=== PATIENT | female | born 1995 | race Hispanic/Latino ===

== ENCOUNTER 2019-06-22 11:00 | Outpatient (CLI) | payer MEDICAID ==
--- NOTE | 2019-06-22 12:59 | ULT ---
OB ULTRASOUND: HISTORY: anatomy. FINDINGS: A single live intrauterine gestation is seen with measurements corresponding an estimated gestational age of 20 weeks 5 days and an SUZIE of 11/04/2019. The estimated weight measures 386 g or 14 oz (40th percentile by Hadlock criteria). measurements are as follows: BPD: 4.54 cm (19 weeks 6 days) HC: 17.84 cm (20 weeks 3 days) AC: 15.70 cm (20 weeks 6 days) FL: 3.56 cm (21 weeks 2 days) The heart rate measures 142 beats per minute. Placenta is posteriorly located without evidence of placenta previa. GILBERT measures 12.48 cm. Cervical length measures 5.5 cm. A three-vessel cord, cord insertion, kidneys, bladder, stomach, four-chambered heart, lateral v entricles, cerebellum, visualized portions of the spine, lips/nose and upper and lower extremities ar e visualized. No definite anomalies are seen. IMPRESSION: Single live intrauterine of 20 weeks' 5 days' estimated gestational age and an estimated da te of delivery 11/04/2019. POS: YANN
== END 2019-06-22 11:01 | disposition home or self-care (01) ==
LOC: BICULT 11:00
PROVIDERS: ATTEND Nurse Practitioner
DX: O09.92 Supervision of high risk pregnancy, unspecified, second trimester (principal); Z3A.20 20 weeks gestation of pregnancy
CPT/HCPCS: 76805

== ENCOUNTER 2019-10-25 04:50 | Outpatient (CLI) | payer OTHER ==
[2019-10-25 18:04] LABS: SARS-CoV-2 MS2 Positive; SARS-CoV-2 N Gene Negative; SARS-CoV-2 S Gene Negative; SARS-CoV-2 orf1ab Negative
== END 2019-10-25 04:51 | disposition home or self-care (01) ==
LOC: ERS 04:50
PROVIDERS: ATTEND Family Medicine
DX: Z01.812 Encounter for preprocedural laboratory examination (principal); Z11.59 Encounter for screening for other viral diseases
CPT/HCPCS: 87635; U0003

== ENCOUNTER 2019-10-27 10:41 | Inpatient (IN) | payer OTHER ==
[2019-10-27] MEDS ORDERED: Ondansetron PF 4 MG/2 ML Vial IVP PRN ×4 (11:28→16:07)
[2019-10-27] MEDS ORDERED: Promethazine HCl 25 MG/ML VIAL IM PRN ×4 (11:28→16:07)
[2019-10-27] MEDS ORDERED: CEFAZOLIN 3 GM in Premix Bag 1 BAG IVPB SCH (11:28)
[2019-10-27] MEDS ORDERED: hydrALAZINE 20 MG/ML VIAL SLOW IVP PRN ×2 (11:28→16:07)
[2019-10-27] MEDS ORDERED: Bicitra 30 ML UDCUP PO SCH (11:28)
[2019-10-27] MEDS ORDERED: Azithromycin 500 MG in Sodium Chloride 0.9% 250 ML 250 ML IVPB SCH (11:28)
[2019-10-27] MEDS ORDERED: Lactated Ringer's 1,000 ML IV SCH (11:28)
[2019-10-27 11:36] VITALS: BMI 49.4
[2019-10-27] MEDS ORDERED: MORPHINE 5 MG/10 ML PF VIAL ONE (11:52)
[2019-10-27] MEDS ORDERED: Midazolam HCl 2 mg/2 ml Vial ONE ×2 (11:53→12:55)
[2019-10-27] MEDS ORDERED: Oxytocin 10 UNITS/ML VIAL ONE (11:54)
[2019-10-27] MEDS ORDERED: PHENYLEPHRINE-NS 100 MCG/ML 10 ML SYRINGE ONE (11:54)
[2019-10-27] MEDS ORDERED: EPHEDRINE 25 MG/5 ML SYRINGE ONE (11:54)
[2019-10-27] MEDS ORDERED: Dexamethasone 4 mg/ml Vial ONE (11:54)
[2019-10-27] MEDS ORDERED: Ketorolac Tromethamine 30 MG/ML VIAL ONE (11:54)
[2019-10-27] MEDS ORDERED: Ondansetron PF 4 MG/2 ML Vial ONE (11:54)
[2019-10-27 12:07] LABS: Hemoglobin 11.9 g/dL (12.0-16.0); Mean Corpuscular HGB CONC 31.9 g/dL (32.0-36.0); Mean Corpuscular Volume 87.8 fL (78.0-98.0); Mean Platelet Volume 7.1 fL (7.4-10.4); Platelet Count 307 thou/uL (130-400); RBC Distribution Width 13.6 % (11.5-14.5); Red Blood Cell (RBC) Count 4.25 mill/uL (4.20-5.40); White Blood Cell (WBC) Count 8.1 thou/uL (4.8-10.8)
[2019-10-27] MEDS ORDERED: Ketorolac Tromethamine 30 MG/ML VIAL IVP PRN ×2 (12:07→15:15)
[2019-10-27] MEDS ORDERED: diphenhydrAMINE 50 MG/ML VIAL IVP PRN ×2 (12:07→15:15)
[2019-10-27] MEDS ORDERED: Naloxone HCl 0.4 mg/ml Vial IVP PRN ×4 (12:07→15:15)
[2019-10-27] MEDS ORDERED: Promethazine HCl 25 MG SUPP PR PRN ×2 (12:07→15:15)
[2019-10-27] MEDS ORDERED: Naloxone HCl 0.4 mg/ml Vial IV PRN ×2 (12:07→15:15)
[2019-10-27] MEDS ORDERED: CEFAZOLIN 1 GM VIAL ONE (12:11)
[2019-10-27] MEDS ORDERED: CEFAZOLIN 3 GM in Sodium Chloride 0.9% 100 ML IVPB SCH (12:15)
[2019-10-27] MEDS ORDERED: Communication Order-Pharmacy FS SCH ×2 (12:15→15:15)
[2019-10-27 12:44] LABS: Syphilis Antibody Nonreactive (Nonreactive); Syphilis Antibody Index 0.05 S/CO (<1.00 Non-Reactive)
[2019-10-27 12:45] LABS: HBSAg Index 0.15 S/CO (0-0.99); Hep B Surf Ag Non-Reactive S/CO (NonReactive)
[2019-10-27] MEDS ORDERED: L&D-Morphine 4 MG/ML VIAL SLOW IVP PRN (15:15)
[2019-10-27] MEDS ORDERED: Ketorolac Tromethamine 30 MG/ML VIAL IVP SCH (15:15)
[2019-10-27] MEDS ORDERED: HYDROmorphone 2 MG/ML VIAL SLOW IVP PRN (15:15)
[2019-10-27] MEDS ORDERED: Meperidine HCl/PF 25 MG/ML VIAL SLOW IVP PRN (15:15)
[2019-10-27] MEDS ORDERED: Ondansetron HCl/PF 4 MG/2 ML Vial IVP PRN (15:15)
[2019-10-27] MEDS ORDERED: Meperidine HCl/PF 25 MG/ML VIAL ONE (15:26)
[2019-10-27] MEDS ORDERED: Morphine 4 MG/ML VIAL ONE (15:50)
[2019-10-27] MEDS ORDERED: Lanolin Ointment 7 GM TUBE TOP PRN (16:07)
[2019-10-27] MEDS ORDERED: Bisacodyl 10 MG SUPP PR PRN (16:07)
[2019-10-27] MEDS ORDERED: diphenhydrAMINE 25 MG CAP PO PRN (16:07)
[2019-10-27] MEDS ORDERED: NS / Oxytocin 40 units/1000ml 1,000 ML IV SCH (16:07)
[2019-10-27] MEDS: Ketorolac Tromethamine 30 MG/ML VIAL IVP SCH (20:45)
[2019-10-28] MEDS ORDERED: Meperidine HCl/PF 25 MG/ML VIAL IM PRN (03:15)
[2019-10-28] MEDS: Ketorolac Tromethamine 30 MG/ML VIAL IVP SCH ×2 (05:28→08:20)
[2019-10-28] MEDS: Ibuprofen 800 MG TAB PO SCH ×3 (05:28→21:15)
[2019-10-28] MEDS: Ferrous Sulfate 325 MG TAB PO SCH ×3 (05:31→23:12)
[2019-10-28] MEDS: Docusate Calcium (SURFAK) 240 MG CAP PO SCH ×3 (05:31→21:15)
[2019-10-28 06:00] LABS: Hemoglobin 11.4 g/dL (12.0-16.0); Mean Corpuscular HGB CONC 32.8 g/dL (32.0-36.0); Mean Corpuscular Hemoglobin 29.1 pg (27.0-31.0); Mean Corpuscular Volume 88.7 fL (78.0-98.0); Mean Platelet Volume 6.4 fL (7.4-10.4); Platelet Count 283 thou/uL (130-400); RBC Distribution Width 13.5 % (11.5-14.5); Red Blood Cell (RBC) Count 3.93 mill/uL (4.20-5.40); White Blood Cell (WBC) Count 8.7 thou/uL (4.8-10.8)
[2019-10-28] MEDS: HYDROcodone/Acetaminophen 5/325 mg Tablet PO PRN ×4 (06:12→19:23)
--- NOTE | 2019-10-28 07:42 | PDOC.OPDEL ---
OB Operative/Delivery Note Delivery Dr/Surgeon: Bunny Assist: [place] Pre-Delivery Diagnosis: scheduled section Procedure/Post Delivery Dx: repeat low transverse CS Weeks gestation: 39 Anesthesia: spinal - Findings A Sex: male - 1 min: 8 - 5 min: 6 - Additional Findings/Plan Placenta delivered: manual removal findings: other (There were lots of small pinpoint adhesions on both front and back of uterus. We used multiple things of kelton to help with hemostasis.) Estimated blood loss: 828 Compilations/Other Findings: Procedure in Detail: After risks, benefits, and alternatives were explained to the patient, she gave informed consent. Pre-operative antibiotics included Cefazolin 2 gram IV. The patient was taken to the operating room and spinal anesthesia was initiated. She was placed in the supine position with a left tilt and prepped and draped in usual sterile fashion. A Pfannenstiel incision was made with a scalpel and carried down to the level of the fascia which was sharply nicked. The fascial cut was extended bilaterally with curved Perez sissors. The inferior and superior edges of the cut fascial edges were elevated with Elizabeth clamps and the underlying rectus muscles were sharply and bluntly dissected free. The recti were divided digitally and retracted manually. The peritoneum was entered bluntly and retracted manually. Bladder blade was placed. Bladder flap was created with Metzenbaum scissors. A low transverse score was made with the scalpel and the uterus was entered in the midline with the scalpel. Clear fluid was seen. The hysterotomy was extended manually. The infant was noted to be vertex and was easily delivered by fundal pressure. Mouth and nares were bulb suctioned. Cord clamped and cut and grossly normal male was handed to waiting nurse. Cord blood was obtained. Placenta was manually extracted, found to be intact with 3 vessel cord and discarded. The uterus was externalized and the endometrium was curetted with a dry lap. The bladder blade was replaced and the uterus was closed with a running locking 1-0 monocryl suture followed by 1 figure of eight stitch. Following this hemostasis was noted along the incision line. There were multiple adhesions noted on the front and back of uterus. One omental adhesion was removed with bovie cautery. The abdomen was then irrigated with saline. Some smaller serosal adhesions were noted to be oozing. Hemostasis was obtained using bovie cautery and kelton powder. Two vials of kelton were used. The incision was then dressed with seprafilm. The uterus was internalized and the hysterotomy was again noted to be hemostatic. The peritoneum was then closed with 3-0 vicryl. The muscle belly was noted to having some oozing. It was made hemostatic with and 0-vicryl figure of eight suture. The fascia was closed with a running non-locking 0-PDS suture. The subcutaneous tissue was irrigated and there were no bleeders. The subq layer was brought toghether with 3 interupted 3-vicyrl suture. The skin was approximated with becky and a pressure dressing was placed. All counts were correct. The patient tolerated the procedure well and was taken to the recovery room in stable condition. Complications: None Specimens: Cord blood sent to lab for blood type Findings: Grossly normal male/female infant with apgars of 8 and 6. Grossly normal placenta with 3 vessel cord discarded. Drains: Mosqueda to gravity draining clear urine Post delivery plan: routine recovery
[2019-10-28] MEDS ORDERED: Adacel (T-DAP) 0.5 ML SYRINGE IM ONE (09:00)
[2019-10-28] MEDS: Prenatal Vitamin 1 TAB PO SCH (10:09)
[2019-10-28] MEDS: Simethicone Chewable 80 MG TAB PO PRN (14:10)
[2019-10-28] MEDS ORDERED: Ibuprofen 800 MG TAB PO SCH (22:00)
[2019-10-29] MEDS: HYDROcodone/Acetaminophen 5/325 mg Tablet PO PRN ×5 (01:10→21:37)
[2019-10-29] MEDS: Ibuprofen 800 MG TAB PO SCH ×3 (06:03→21:37)
[2019-10-29] MEDS: Prenatal Vitamin 1 TAB PO SCH (09:15)
[2019-10-29] MEDS: Docusate Calcium (SURFAK) 240 MG CAP PO SCH ×2 (09:15→21:37)
[2019-10-29] MEDS: Ferrous Sulfate 325 MG TAB PO SCH ×2 (09:16→21:37)
[2019-10-29] MEDS: Simethicone Chewable 80 MG TAB PO PRN (13:27)
[2019-10-30] MEDS: HYDROcodone/Acetaminophen 5/325 mg Tablet PO PRN ×5 (01:16→20:14)
[2019-10-30] MEDS: Ibuprofen 800 MG TAB PO SCH ×3 (05:04→21:34)
[2019-10-30] MEDS: Docusate Calcium (SURFAK) 240 MG CAP PO SCH ×2 (09:26→21:34)
[2019-10-30] MEDS: Prenatal Vitamin 1 TAB PO SCH (09:26)
[2019-10-30] MEDS: Ferrous Sulfate 325 MG TAB PO SCH ×2 (09:27→21:34)
[2019-10-31] MEDS: HYDROcodone/Acetaminophen 5/325 mg Tablet PO PRN ×2 (02:25→08:26)
[2019-10-31] MEDS: Ibuprofen 800 MG TAB PO SCH (06:17)
[2019-10-31] MEDS: Prenatal Vitamin 1 TAB PO SCH (08:26)
[2019-10-31] MEDS: Docusate Calcium (SURFAK) 240 MG CAP PO SCH (08:26)
[2019-10-31] MEDS: Ferrous Sulfate 325 MG TAB PO SCH (08:27)
[2019-10-31 08:31] VITALS: BP 108/59; TEMP 97.5
--- NOTE | 2019-11-02 06:23 | PQF ---
JASBIR Mathis MD [id number] CLINICAL DOCUMENTATION CLARIFICATION FORM: POST DISCHARGE Addendum to original discharge summary date: ____ Late entry note date: __ DATE: 11/02/2019 ATTN: Jasbir Holder Please exercise your independent, professional judgment in responding to the clarification form. Clinical indicators are provided on the bottom of this form for your review Please check appropriate box(s): In the description of the operative procedure a Serosal adhesion with oozing was noted by the surgeon. If possible would you please further clarify if this was: [ ] Incidental occurrence inherent in the surgical procedure [ ] Intraoperative bleeding as Complication of the procedure [ ] Other [ ] Unable to determine For continuity of documentation, please document condition throughout progress notes and discharge summary. Thank You. CLINICAL INDICATORS - SIGNS / SYMPTOMS / LABS L&D note p1 10/27 Some smaller serosal adhesion were noted to be oozing, Hemistatsis was obtained using bovie cautery and kelton L&D note p1 10/27 Estimated blood loss 828 RISK FACTORS L&D note p1 10/27 39 weeks of gestation L&D note p1 10/27 s/p CS L&D note p1 10/27 Uterine adhesions TREATMENTS: L&D note p1 10/27 Repeat low tranverse CS L&D note p1 10/27 Hemostasis using bovie cautery (This form is maintained as a part of the permanent medical record) 2014 [employer]. All Rights Reserved [email or web address]
== END 2019-10-31 13:48 | disposition home or self-care (01) | DRG 788 ==
LOC: L&D 10:41 → 3SW 15:13
PROVIDERS: ADMIT Family Medicine; ATTEND Family Medicine
PROC: 10D00Z1 Extraction of Products of Conception, Low, Open Approach (ICD-10-PCS; principal; 2019-10-27)
PROC: 3E0P05Z Introduction of Adhesion Barrier into Female Reproductive, Open Approach (ICD-10-PCS; 2019-10-27)
DX: O34.211 Maternal care for low transverse scar from previous cesarean delivery (principal); Z3A.39 39 weeks gestation of pregnancy; Z37.0 Single live birth; O99.214 Obesity complicating childbirth; E66.9 Obesity, unspecified
CPT/HCPCS: 36415; 51702; 85027; 86780; 86850; 86900; 86901; 87340; J0456; J0690; J1100; J1885; J2175; J2250; J2270; J2274; J2405; J2590; J7050